=== PATIENT | female | born 1960 | race Caucasian/White ===

== ENCOUNTER 2018-04-17 16:00 | Outpatient (RCR) | payer BC ==
--- NOTE | 2018-04-17 17:05 | PT INITIAL EVALUATION ---
MEDICAL DIAGNOSIS: Vertigo TREATMENT DIAGNOSIS: Meniere's disease DATE OF ONSET: 03/07/18 SUBJECTIVE: Brianna oCol presents to PT for episodic vertigo or dizziness since about mid-Feb, 2018, lasting 1+ hour. She relates she's had nausea and vomiting at times with these episodes. Head down or head back motions can create these episodes and sometimes she awakens with vertigo. She tries to continue to work, even with these episodes. REHAB PROBLEM LIST: Decreased Balance and Altered Gait PREVIOUS MEDICAL HISTORY: Six months of episodic vertigo, dizziness about 6 years ago, R ear 40% hearing loss in the past (MD she saw thought it was repeated ear infections as a child). 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 OBJECTIVE: Posture: No resting nystagmus, head midline. ROM: A/PROM cervical spine WNL/WNL without nystagmus or vertigo. Special Tests: Negative Hallpike, roll test, head thrust. Normal eye tracking and gaze stabilization. Gait: Gait with head motion without weaving but with increased pelvic rotation. Forward git, eyes shut with 14" deviation over 20 feet, to the L. Balance: Single leg stand 3-5 seconds L and R. Static stand on firm, eyes shut with mild increase of postural sway. ASSESSMENT: Brianna Cool presents with what appears to be Meniere's disease, not active today. She's educated on Torres-Daroff, VOR x2 and static stand eyes shut HEP. As she has mild balance changes in gait, I feel she can address her vestibular system with HEP. I'll DC PT today. Short Term Goals Patient is educated in vestibular HEP, including Torres-Daroff exercises. Patient's Goals Find out if her dizziness/vertigo is BPPV. met (it isn't) PLAN: Patient to be seen for Home Exercise Program 1x/Week for today then DC PT to HEP Thank you for this referral. If you have any questions, comments, or concerns about this report or plan, please contact me at . [facility]
== END 2018-04-17 18:00 | disposition home or self-care (01) ==
LOC: PT 16:00
PROVIDERS: ATTEND Family Medicine
DX: H81.09 Meniere's disease, unspecified ear (principal); R26.89 Other abnormalities of gait and mobility
CPT/HCPCS: 97161